=== PATIENT | male | born 1970 | race Caucasian/White ===

== ENCOUNTER 2016-10-27 15:32 | Emergency (ER) | payer OTHER ==
[2016-10-27 15:47] VITALS: BP 173/96
--- OUTSIDE RECORDS SUMMARY | 2016-10-27 15:48 | XMS REPORT | Continuity of Care Document ---
:1970 Author Organization [facility] ([facility]) Address [address] [place] [address] Phone [phone] Care Team Providers Name Role Phone Unavailable Primary Care Provider Unavailable Source Comments This disclosure is being made pursuant to the Care Everywhere program, applicable federal and state laws, and may not contain all informaitonavailable regarding this patient.[facility] ([facility]) Active Allergies and Adverse Reactions Not on File Current Medications Not on file Active Problems Not on file Social History Tobacco Use Types Packs/Day Years Used Date Never Assessed Last Filed Vital Signs Vital Sign Reading Time Taken Blood Pressure - - Pulse - - Temperature - - Respiratory Rate - - Height - - Weight 110.496 kg (243 lb 9.6 oz) 12/11/1995 9:35 AM CDT Body Mass Index - - Oxygen Saturation - - Plan of Care Health Maintenance Due Date Last Done Comments Hepatitis B Vaccine (1 of 3 - Primary Series) 1970 Tdap Vaccine 1982 Lipid Disorder Screening 1989 MMR Vaccine 1989 Td Vaccine 1989 Influenza Vaccine: Seasonal (#1) 02/13/2016 Results from Last 3 Months Not on file
== END 2016-10-27 15:44 | disposition home or self-care (01) ==
LOC: ER 15:32
DX: Z13.6 Encounter for screening for cardiovascular disorders (principal)